=== PATIENT | male | born 1980 | race Two or more races ===

== ENCOUNTER → 2021-04-02 | Outpatient (CLI) | payer OTHER ==
[2021-04-02 10:49] LABS: CALCIUM 9.5 mg/dL (8.5-10.1); CREATININE 1.5 mg/dL (0.7-1.3); GFR 51.8; POTASSIUM 3.5 mmol/L (3.5-5.1)
== END ==
LOC: EEVIPCON 10:29 → SPEC 10:29
PROVIDERS: ATTEND Family Medicine
DX: N17.9 Acute kidney failure, unspecified (principal)
CPT/HCPCS: 36415; 80048

== ENCOUNTER → 2021-04-04 | Outpatient (CLI) | payer OTHER ==
[2021-04-04 08:37] LABS: BASO # 0.1 x10^3/uL (0.0-0.2); BASO % 1 % (0-3); EOS # 0.3 x10^3/uL (0.0-0.7); EOS % 4 % (0-3); HEMATOCRIT 31.7 % (39.0-53.0); HEMOGLOBIN 10.6 g/dL (13.0-17.5); LYMPH # 2.1 x10^3/uL (1.0-4.8); LYMPH % 28 % (24-48); MEAN CORPUSCULAR HEMOGLOBIN 31 pg (25-35); MEAN CORPUSCULAR HGB CONC 34 g/dL (31-37); MEAN CORPUSCULAR VOLUME 91 fL (79-100); MONO # 0.4 x10^3/uL (0.0-1.1); MONO % 5 % (0-9); NEUT # 4.6 x10^3uL (1.8-7.7); NEUT % 62 % (31-73); PLATELET COUNT 226 x10^3/uL (140-400); RED BLOOD COUNT 3.48 x10^6/uL (4.30-5.70); RED CELL DISTRIBUTION WIDTH 12.4 % (11.5-14.5); WHITE BLOOD COUNT 7.4 x10^3/uL (4.0-11.0)
[2021-04-04 08:42] LABS: ALBUMIN 3.7 g/dL (3.4-5.0)
[2021-04-04 08:43] LABS: ALBUMIN/GLOBULIN RATIO 1.1 (1.0-1.7); CREATININE 1.5 mg/dL (0.7-1.3); GFR 51.8; PHOSPHORUS 2.5 mg/dL (2.6-4.7); POTASSIUM 3.5 mmol/L (3.5-5.1); TOTAL BILIRUBIN 0.3 mg/dL (0.2-1.0); URIC ACID 4.7 mg/dL (3.5-7.2)
== END ==
LOC: EEVIPCON 08:14 → LAB 08:14
PROVIDERS: ATTEND Family Medicine
DX: A41.01 Sepsis due to Methicillin susceptible Staphylococcus aureus (principal); N17.9 Acute kidney failure, unspecified
CPT/HCPCS: 36415; 80053; 82977; 83615; 84100; 84550; 85025